=== PATIENT | female | born 1995 | race Caucasian/White ===

== ENCOUNTER 2016-07-22 15:58 | Outpatient (CLI) | payer OTHER ==
[2015-09-20 18:04] VITALS: BP 132/87
== END 2016-07-22 16:00 ==
LOC: LABRHC 15:58
PROVIDERS: ATTEND Physician Assistant
DX: N30.01 Acute cystitis with hematuria (principal)
CPT/HCPCS: 87088; 87186

== ENCOUNTER 2017-03-30 10:21 | Outpatient (CLI) | payer OTHER ==
[2015-09-20 18:04] VITALS: BP 132/87
[2017-03-30 10:43] LABS: BASOPHILS % 0.4 (0.0-1.5); EOSINOPHILS % 2.7 % (0.0-6.8); MEAN CORPUSCULAR HEMOGLOBIN 27.9 pg (28.0-34.0); MEAN CORPUSCULAR VOLUME 83.5 fl (80.0-100.0); NEUTROPHILS # 5.6 # k/uL (1.4-7.7)
[2017-03-30 11:58] LABS: eGFR (African) > 60; eGFR (Non-African) > 60
== END 2017-03-30 10:22 ==
LOC: LAB 10:21
PROVIDERS: ATTEND Physician Assistant
DX: R53.83 Other fatigue (principal)
CPT/HCPCS: 36415; 80053; 84439; 84443; 84481; 85025

== ENCOUNTER 2017-10-13 16:40 | Outpatient (CLI) | payer OTHER ==
[2015-09-20 18:04] VITALS: BP 132/87
== END 2017-10-13 16:42 ==
LOC: LAB 16:40
PROVIDERS: ATTEND Physician Assistant
DX: Z34.90 Encounter for supervision of normal pregnancy, unspecified, unspecified trimester (principal)
CPT/HCPCS: 36415; 84702

== ENCOUNTER 2017-12-18 17:25 | Emergency (ER) | payer OTHER ==
--- NOTE | 2017-12-18 17:40 | ED Physician Documentation ---
Fall - HISTORIAN Historian: patient - HPI Chief Complaint: Fall Additional Information: running in [place] fell sidewalk skinned both knees and rt thenar eminenc pt is p-o-g-1 edc=06-12-18-no movement felt as yet-denies abd pain or cramping Onset: just prior to arrival Context: tripped, lost balance r: mild, moderate Associated Symptoms:: no loss of consciousness Location of Pain/Injury: denies: head, neck, face, abdomen, upper back, mid back , lower back Injury to Right Extremity: hand, knee Injury to Left Extremity: knee - ROS CONST: no problems NEURO: denies: dizziness, anxiety, depression MS/SKIN/LYMPH: denies: weakness, numbness, neck pain EYES/ENT: denies: problems with vision CVS/RESP: none GI/: denies: nausea, vomiting - PAST HX Past History: none Immunizations: UTD Allergies/Adverse Reactions: Allergies Allergy/AdvReac Type Severity Reaction Status Date / Time No Known Allergies Allergy Verified 12/18/17 17:41 Home Medications: Ambulatory Orders Medication Instructions Recorded Paroxetine HCl [Paxil] 30 mg PO DAILY 12/18/17 - SOCIAL HX Smoking History: non-smoker Alcohol Use: none Drug Use: marijuana - FAMILY HX Family History: no significant history - VITAL SIGNS Vital Signs: Vital Signs Temp Pulse Resp BP Pulse Ox 132/87 09/20/15 17:56 - REVIEWED ASSESSMENTS Nursing Assessment Reviewed: Yes Vitals Reviewed: Yes Fall Physical Exam - Physical Exam General Appearance: mild distress Head: non-tender Neck: non-tender Eye: MY, EOMI ENT: nml external inspection Resp/CVS: chest non-tender, no ecchymosis, breath sounds nml Abdomen: soft, non-tender Neuro: oriented x3, CN's nml as tested, sensation nml, motor nml, mood/affect nml Skin: color nml, no rash, skin rash (knees rt thenar eminence). No: cyanosis, diaphoresis, pallor, ecchymosis Back: normal inspection, no CVA tenderness, no vertebral tenderness Extremities: atraumatic (except as above) Joint: joints nml, nml ROM, Nml gait/weight bearing - Janelle Coma Score Eyes Open: Spontaneous Speech: Oriented Motor: Obeys Commands Discharge Clincal Impression: fall wskinned knees and rt thenar emince, uterine Referrals: Zeynep Ortega MD [Primary Care Provider] - 2 Days Comments: home keep clean w/ chlorhexadine plus soap water Condition: Good Disposition: 01 HOME, SELF-CARE Decision to Admit: NO Decision Time: 17:46
[2017-12-18 17:47] VITALS: BP 143/73
== END 2017-12-18 17:52 | disposition home or self-care (01) ==
LOC: ED 17:25
DX: S80.211A Abrasion, right knee, initial encounter (principal); S80.212A Abrasion, left knee, initial encounter; S60.511A Abrasion of right hand, initial encounter; Z33.1 Pregnant state, incidental; W19.XXXA Unspecified fall, initial encounter; Y92.9 Unspecified place or not applicable; Y93.02 Activity, running; Y99.9 Unspecified external cause status

== ENCOUNTER 2017-12-29 14:44 | Outpatient (CLI) | payer OTHER ==
--- NOTE | 2017-12-29 17:46 | Diagnostic Imaging Report ---
[facility] [place] [facility] [address] [facility] [address] [id number] Report Submission Date: Dec 29, 2017 3:23:46 PM CDT Patient Study Name: MILTON CARNEY Date: Dec 29, 2017 2:49:41 PM CDT Modality Type: DX Gender: F Description: UPPER EXTREMITY : 89 Institution: [facility] Physician: SON VILA Right wrist History: Fell 1 week ago 3 views of the right wrist were obtained which demonstrate no evidence for acute fracture or dislocation. Mineralization and alignment is normal. Impression: No osseous abnormality. Electronically signed on Dec 29, 2017 3:23:46 PM CDT by: Sarai EMERSON
== END 2017-12-29 14:45 ==
LOC: RAD 14:44
PROVIDERS: ATTEND Physician Assistant
DX: M25.531 Pain in right wrist (principal)
CPT/HCPCS: 73110

== ENCOUNTER 2018-05-15 22:36 | Emergency (ER) | payer OTHER ==
[2018-05-15] MEDS: ONDANSETRON HCL/PF 4 MG/ 2ML VIAL IVP ONE (23:00)
[2018-05-15 23:16] LABS: eGFR (Non-African) > 60
--- NOTE | 2018-05-15 23:16 | ED Physician Documentation ---
General Adult - HISTORIAN Historian: patient - HPI Stated Complaint: n/v/d Chief Complaint: General Adult Additional Information: NVD since 1600 today. Had Luiss yesterday afternoon and thinks she may have food poisoning. Mother and brother had similar symptoms after Smith's last week. No fever. 36 weeks , LNMP 09/05/17. . Recently told she has gestational diabetes. Urinated 2-3x since 1600. No blood in stools or emesis. No other modifying factors or associated signs. - ROS CONST: no problems - PAST HX Past History: other (above) Other History: none Surgeries/Procedures: none Allergies/Adverse Reactions: Allergies Allergy/AdvReac Type Severity Reaction Status Date / Time No Known Drug Intolerances Allergy Verified 05/15/18 23:10 Home Medications: Ambulatory Orders Medication Instructions Recorded Vit/Iron Fum/Folic AC 1 tab PO D 05/15/18 [ Tablet] Ondansetron HCl Rapdis [Zofran Odt] 4 mg PO Q6 PRN #15 tab 05/16/18 - SOCIAL HX Smoking History: non-smoker - FAMILY HX Family History: Yes (DM) - VITAL SIGNS Vital Signs: Vital Signs Temp Pulse Resp BP Pulse Ox 143/73 12/18/17 17:52 - REVIEWED ASSESSMENTS Nursing Assessment Reviewed: Yes Vitals Reviewed: Yes ED Results Lab/Radiology - Orders Orders: ED Orders Category Date Time Status Place IV Lock 1T Care 05/15/18 22:49 Ordered CBC/PLATELET/DIFF Routine Lab 05/15/18 Ordered CMP Routine Lab 05/15/18 Ordered UA [URINALYSIS] Routine Lab 05/15/18 Ordered Chem Sticks Med 05/15/18 22:49 Ordered 1 each CHEMQID PRN NORMAL SALINE @ 1000 MLS/HR ( 1000ml BOLUS) Med 05/15/18 22:49 Ordered 0.9 % Sodium Chloride [Normal Saline] 1,000 ml IV Q1H Ondansetron HCl/Pf [Zofran 4 mg/2 ml] Med 05/15/18 22:49 Once 4 mg IVP NOW ONE General Adult Physical Exam - PHYSICAL EXAM GENERAL APPEARANCE: moderate distress (frequent vomiting) EENT: eye inspection normal, ENT inspection normal, pharynx normal NECK: normal inspection, supple RESPIRATORY: breath sounds normal CVS: reg rate & rhythm, heart sounds normal, no murmur ABDOMEN: soft, normal bowel sounds, non-tender (gravid), other (FHT's 144) BACK: normal inspection, no CVA tenderness SKIN: warm/dry, normal color EXTREMITIES: normal range of motion (gait and stance), no evidence of injury NEURO: CN's nml as tested, motor nml, sensation nml Discharge Clincal Impression: Nausea vomiting and diarrhea Prescriptions: Ondansetron HCl Rapdis [Zofran Odt] 4 mg PO Q6 PRN #15 tab PRN Reason: Nausea / Vomiting Referrals: Zeynep Ortega MD [STAFF PHYSICIAN] - 2 Days Additional Instructions: Advance your diet very slowly. Return to the ER if you are unable to urinate for 8 hours. Condition: Fair Disposition: 01 HOME, SELF-CARE Decision to Admit: NO Decision Time: 00:29
[2018-05-15 23:17] LABS: BASOPHILS % 0.3 (0.0-1.5); EOSINOPHILS % 0.9 % (0.0-6.8); MEAN CORPUSCULAR HEMOGLOBIN 28.1 pg (28.0-34.0); MONOCYTES % 3.3 % (0.0-11.0); NEUTROPHILS # 14.1 # k/uL (1.4-7.7)
[2018-05-15] MEDS: 0.9 % SODIUM CHLORIDE 1,000 ML IV ONE (23:55)
[2018-05-16] MEDS: 0.9 % SODIUM CHLORIDE 1,000 ML IV ONE (00:06)
[2018-05-16] MEDS: ONDANSETRON HCL/PF 4 MG/ 2ML VIAL IVP ONE (00:40)
[2018-05-16 01:27] VITALS: BP 125/64
[2018-05-16 11:08] LABS: APPEARANCE,URINE CLEAR (CLEAR); COLOR,URINE YELLOW (YELLOW); OCCULT BLOOD,URINE NEGATIVE (NEGATIVE)
== END 2018-05-16 01:18 | disposition home or self-care (01) ==
LOC: ED 22:36
DX: R11.2 Nausea with vomiting, unspecified (principal); R19.7 Diarrhea, unspecified; Z3A.36 36 weeks gestation of pregnancy
CPT/HCPCS: 80053; 81002; 85025; J2405; J7030; 96365; 96366; 96375; S1016